=== PATIENT | male | born 1980 | race Hispanic/Latino ===

== ENCOUNTER 2017-06-12 13:34 | Emergency (ER) | payer OTHER ==
[2017-06-12 15:08] VITALS: BP 121/77; RESP 18; TEMP 98
[2017-06-12 16:53] VITALS: PULSE 94; O2SAT 97
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
== END 2017-06-12 16:51 | disposition home or self-care (01) ==
LOC: H.ER 13:34
DX: Z04.1 Encounter for examination and observation following transport accident (principal); F17.200 Nicotine dependence, unspecified, uncomplicated